=== PATIENT | female | born 1965 | race Caucasian/White ===

== ENCOUNTER 2018-10-06 11:29 | Emergency (ER) | payer BC ==
[2018-10-06] MEDS ORDERED: HYDROCODONE/APAP 5/325MG TABLET PO ONE (11:40)
[2018-10-06] MEDS ORDERED: METHYLPREDNISOLONE 80MG/VIAL IM ONE (11:40)
--- NOTE | 2018-10-06 11:45 | Emergency Department Record ---
History of Present Illness - General Chief complaint: Extremity Problem Stated complaint: SHOULDER PAIN Time Seen by Provider: 10/06/18 11:39 Source: Patient Mode of Arrival: Ambulatory Limitations: No limitations - History of Present Illness Initial comments: 53 yo female presents with right shoulder pain. The onset was gradual over the week. No specific trauma. 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 She has had similar issues in the past. She thinks an MRI in the past demonstrated a rotator cuff issue. No fever. No swelling. No warmth. NO rash or redness. She has pain in most directions. She is most comfortable internally rotated. No weakness, numbness or tingling. No a diabetic. MD Complaint: Joint pain Onset/Timin -: Week(s) Location: Right, Shoulder History of Same: Yes Radiation: Proximal, Distal Severity scale (1-10): 6 Quality: Aching Consistency: Constant Improves with: Immobilization Worsens with: Exertion Associated Symptoms: Denies other symptoms - Related Data Home Medications Medication Instructions Recorded Confirmed Last Taken Paroxetine HCl [Paxil] 20 mg PO DAILY 10/06/18 10/06/18 Unknown Previous Rx's Medication Instructions Recorded Hydrocodone/Acetaminophen [[place] 1 tab PO Q6H PRN #8 tab 10/06/18 5mg/325mg] Methylprednisolone [Medrol Dose 4 mg PO DAILY #1 tab.ds.pk 10/06/18 Pack] Allergies Allergy/AdvReac Type Severity Reaction Status Date / Time No Known Drug Allergies Allergy Verified 10/06/18 11:38 Travel Screening - Travel/Exposure Within Last 30 Days Have you traveled within the last 30 days?: No Review of Systems Constitutional: Denies: Chills, Fever, Malaise, Weakness Eyes: Denies: Eye discharge ENT: Denies: Congestion, Throat pain Respiratory: Denies: Cough, Dyspnea Cardiovascular: Denies: Chest pain, Syncope Endocrine: Denies: Fatigue Gastrointestinal: Denies: Abdominal pain, Diarrhea, Nausea, Vomiting Genitourinary: Denies: Dysuria Musculoskeletal: Reports: Arthralgia Skin: Denies: Bruising, Change in color, Rash Neurological: Denies: Headache Psychiatric: Denies: Anxiety Hematological/Lymphatic: Denies: Easy bleeding, Easy bruising Past Medical History - SOCIAL HISTORY Smoking Status: Never smoker Alcohol Use: None Drug Use: None - RESPIRATORY Hx Respiratory Disorders: No - CARDIOVASCULAR Hx Cardio Disorders: No - NEURO Hx Neuro Disorders: No - GI Hx GI Disorders: No - Hx Genitourinary Disorders: No - ENDOCRINE Hx Endocrine Disorders: No - MUSCULOSKELETAL Hx Musculoskeletal Disorders: No - PSYCH Hx Psych Problems: No - HEMATOLOGY/ONCOLOGY Hx Hematology/Oncology Disorders: No Family Medical History Any Significant Family History?: No Physical Exam - General General Appearance: Alert, Oriented x3, Cooperative, No acute distress Limitations: No limitations - Head Head exam: Atraumatic, Normal inspection - Eye Eye exam: Normal appearance, PERRL. negative: Conjunctival injection, Scleral icterus - ENT ENT exam: Normal exam, Mucous membranes moist Ear exam: Normal external inspection Nasal Exam: Normal inspection Mouth exam: Normal external inspection - Neck Neck exam: Normal inspection - Respiratory Respiratory exam: Normal lung sounds bilaterally. negative: Respiratory distress - Cardiovascular Peripheral Pulses: 2+: Radial (R) - Rectal Rectal exam: Deferred - exam: Deferred - Extremities Extremities exam: Normal inspection, Normal capillary refill, Tenderness. negative: Full ROM, Joint swelling Image of Full Body: 1 - normal inspection, no warmth or swelling. Minimal pain with internal rotation, pain with flexion, abduction, and external rotation - Back Back exam: Denies: CVA tenderness (R), CVA tenderness (L) - Neurological Neurological exam: Alert, Oriented X3 - Psychiatric Psychiatric exam: Normal affect, Normal mood. negative: Agitated, Anxious - Skin Skin exam: Dry, Intact, Normal color, Warm Course - Reevaluation(s) Reevaluation #1: 10/06/18 12:15 The XR report was negative for acute process The patient will be treated supportively with recommendation for follow up with PCP She was informed that she may need follow up this week to recheck if not improving. She may need MRI if not improving as a soft tissue, tendon, or cartilage cause is more likely. We discussed sling and avoiding prolonged immobilization with hourly are movements Disposition Disposition: Discharge Clinical Impression: Shoulder pain, right Qualifiers: Chronicity: acute Qualified Code(s): M25.511 - Pain in right shoulder Disposition: Home, Self-Care Condition: (1) Good Instructions: Rotator Cuff Tendinitis (ED) Additional Instructions: Call your doctor for the next available follow up appointment Review this ER visit and the tests performed with your family doctor Return to the ER for a recheck if worse, any new concerns or questions The sling is only for support and comfort. Move your arm and shoulder every hour to prevent stiffness. If you do not move the shoulder it is at some risk for locking in place. Do the exercises we discussed in the ED every hour Take the prescriptions provided as directed Prescriptions: Methylprednisolone [Medrol Dose Pack] 4 mg PO DAILY #1 tab.ds.pk Hydrocodone/Acetaminophen [[place] 5mg/325mg] 1 tab PO Q6H PRN #8 tab PRN Reason: Pain - General Referrals: Vito Rooney [DOCTOR OF OSTEOPATH] - [facility] [Provider Group] Forms: Patient Portal Access Time of Disposition: 12:17 Quality - Quality Measures Quality Measures: N/A - Blood Pressure Screening Does Patient Have Any of the Following: No Blood Pressure Classification: Hypertensive Reading Systolic Measurement: 151 Diastolic Measurement: 92 Screening for High Blood Pressure: < Pre-Hypertensive BP, F/U Documented > [G8950] Pre-Hypertensive Follow-up Interventions: Referral to alternative/primary care provider.
[2018-10-06] MEDS ORDERED: ONDANSETRON 4 MG ODT TABLET SL ONE (12:06)
== END 2018-10-06 12:46 | disposition home or self-care (01) ==
LOC: ER 11:29
DX: M25.511 Pain in right shoulder (principal)
CPT/HCPCS: 96372; 99283; 99284; J1040